=== PATIENT | male | born 1975 | race African-American/Black ===

== ENCOUNTER 2022-03-08 10:36 | Emergency (ER) | payer BC, SELFPAY ==
--- NOTE | ~2022-03-08 | XR_ITS ---
EXAMINATION: XR hand LT min 3V DATE: 03/08/2022 11:01 INDICATION: Left hand injury and swelling. TECHNIQUE: 3 views of left hand were obtained. COMPARISON: None. FINDINGS: Bone alignment is normal. No acute fracture. There are old healed fractures of second-fourt h metacarpals. There is chronic deformity of base of first proximal phalanx that is likely an old hea led fracture. Joint spaces are normal. IMPRESSION: 1. No acute fracture. Reviewed, dictated and finalized at location B. IMPRESSION: 1. No acute fracture.
[2022-03-08 10:44] VITALS: BP 156/93; PULSE 67; RESP 16; TEMP 36.9; O2SAT 100
--- NOTE | 2022-03-08 11:10 | ED.UPPEXIN ---
HPI - Extremity Injury (Upper) General Chief Complaint: Extremity Injury, Upper Stated Complaint: Left hand Swelling Time Seen by Provider: 03/08/22 11:02 Source: patient Mode of arrival: ambulatory Limitations: no limitations History of Present Illness HPI narrative: This is a 47-year-old male that presents to the emergency department for left hand pain and swelling noted since yesterday. No recent injury or trauma. Reports pain and swelling especially about the left third MCP joint. Reports history of similar events in the past, but has not had any certain diagnosis. Denies fever or erythema. Related Data Allergies Allergy/AdvReac Type Severity Reaction Status Date / Time No Known Allergies Allergy Verified 03/08/22 11:36 Review of Systems Review of Systems: CONSTITUTIONAL: Denies fever SKIN: Denies rash MUSCULOSKELETAL: Reports joint pain, and myalgia. NEUROLOGIC: Denies numbness All systems reviewed & are unremarkable except as noted in HPI and below PMFSH Past Medical History Medical History (Updated 03/08/22 @ 12:24 by Sofia Pryor PA-C) No active medical problems Social History Social History (Updated 03/08/22 @ 11:12 by Sofia Pryor PA-C) Substance use: never Exam Narrative: GENERAL: Well-appearing, well-nourished, and in no acute distress. HEAD: Normocephalic, atraumatic. EYES: EOMI. EXTREMITIES: Normal range of motion. Mild edema about the left third MCP joint, tender to palpation. No erythema or warmth. Normal radial pulse. Normal sensation SKIN: Warm, dry, no rash. NEURO: No focal deficits. Alert and oriented x3. PSYCH: Normal mood and affect Course Vital Signs Vital signs: Vital Signs Temperature 98.4 F 03/08/22 10:44 Pulse Rate 67 03/08/22 10:44 Respiratory Rate 16 03/08/22 10:44 Blood Pressure 156/93 H 03/08/22 10:44 Pulse Oximetry 100 03/08/22 10:44 Oxygen Delivery Room Air 03/08/22 10:44 Temperature 98.4 F 03/08/22 10:44 Pulse Rate 67 03/08/22 10:44 Respiratory Rate 16 03/08/22 10:44 Blood Pressure 156/93 H 03/08/22 10:44 Pulse Oximetry 100 03/08/22 10:44 Oxygen Delivery Room Air 03/08/22 10:44 MDM - Extremity Injury (Upper) MDM Narrative Medical decision making narrative: Patient presents to the emergency department for left hand pain and swelling. No known injury or trauma. Patient is afebrile and nontoxic-appearing. There is no erythema the hand. Patient has good range of motion. CBC is without leukocytosis. Inflammatory markers are not concerningly elevated. Kidney function is normal. Left hand x-ray without acute findings. Patient symptoms and exam are consistent with likely a gout flare. Patient will be started on anti-inflammatories and colchicine. He is stable and felt appropriate for further outpatient evaluation. He is to follow-up with primary care doctor. He was given warnings to return to the ER Lab Data Attestation: I reviewed the patient's lab results. Result diagrams: 03/08/22 11:32 03/08/22 11:32 Labs: Lab Results 03/08/22 03/08/22 Range/Units 11:32 11:32 WBC 9.2 (4.5-10.0) K/mm3 RBC 4.45 L (4.6-6.20) M/mm3 Hgb 13.2 L (14.0-18.0) g/dL Hct 43.1 (42.0-52.0) % MCV 96.9 (80-100) fl MCH 29.7 (26-34) pg MCHC 30.6 L (32-36) g/dl RDW 12.7 (11.5-14.5) % Plt Count 270 (150-375) k/mm3 MPV 9.8 (7.4-10.4) fl Immature Gran % (Auto) 0.2 (0-0.5) % Neut % (Auto) 73.7 H (45.5-73.1) % Lymph % (Auto) 16.8 L (18.3-44.2) % [place] % (Auto) 7.7 (2.6-8.5) % Eos % (Auto) 1.3 (0-4.4) % Baso % (Auto) 0.3 (0.2-1.2) % Lymph # (Auto) 1.55 (0.9-3.2) K/mm3 [place] # (Auto) 0.7 H (0.1-0.6) K/mm3 Eos # (Auto) 0.1 (0-0.3) K/mm3 Baso # (Auto) 0.0 (0.0-0.1) K/mm3 Abs Immat Gran (auto) 0.02 (0.00-0.031) K/mm3 Absolute Neuts (auto) 6.8 H (1.3-6.7) K/mm3 Absolute Nucleated RBC 0.0 (0.0-0.012) K/mm3 Nucleated R
[2022-03-08 11:40] LABS: Basophils Percent Auto 0.3 % (0.2-1.2); Eosinophils Absolute Auto 0.1 K/mm3 (0-0.3); Eosinophils Percent Auto 1.3 % (0-4.4); Hematocrit 43.1 % (42.0-52.0); Hemoglobin 13.2 g/dL (14.0-18.0); Immature Granulocyte Absolute 0.02 K/mm3 (0.00-0.031); Immature Granulocyte Percent A 0.2 % (0-0.5); Lymphocytes Absolute Auto 1.55 K/mm3 (0.9-3.2); Lymphocytes Percent Auto 16.8 % (18.3-44.2); Mean Corpuscular HGB Conc 30.6 g/dl (32-36); Mean Corpuscular Hemoglobin 29.7 pg (26-34); Mean Corpuscular Volume 96.9 fl (80-100); Mean Platelet Volume 9.8 fl (7.4-10.4); Monocytes Absolute Auto 0.7 K/mm3 (0.1-0.6); Monocytes Percent Auto 7.7 % (2.6-8.5); Neutrophils Absolute Auto 6.8 K/mm3 (1.3-6.7); Neutrophils Percent Auto 73.7 % (45.5-73.1); Platelet Count Result 270 k/mm3 (150-375); Red Blood Count 4.45 M/mm3 (4.6-6.20); Red Cell Distribution Width 12.7 % (11.5-14.5); White Blood Count 9.2 K/mm3 (4.5-10.0)
[2022-03-08 11:53] LABS: Anion Gap 7 mmol/L (8-16); Blood Urea Nitrogen 10 mg/dL (9-20); Calcium 8.4 mg/dL (8.4-10.2); Carbon Dioxide 26 mmol/L (22-30); Chloride 106 mmol/L (98-107); Estimated CRCL calculation 152 ml/min; Estimated Glomerular Filt Rate > 60; Glucose 94 mg/dL (65-110); Potassium 4.2 mmol/L (3.4-5.0); Sodium 139 mmol/L (137-145); Uric Acid 8.2 mg/dL (3.5-8.5)
[2022-03-08 12:21] LABS: Erythrocyte Sedimentation Rate 17 mm/hr (0-20)
[2022-03-08] MEDS: COLCHICINE 0.6 MG TABLET 1.2 MG PO (12:33)
[2022-03-08] MEDS: INDOMETHACIN 25 MG CAPSULE PO (12:33)
[2022-03-08 12:38] VITALS: BP 161/109; PULSE 60; RESP 19; O2SAT 98
== END 2022-03-08 12:39 | disposition home or self-care (01) ==
PROVIDERS: Physician Assistant; Emergency Provider Emergency Medicine
DX: M25.442 Effusion, left hand (principal)
CPT/HCPCS: 36415; 73130; 80048; 84550; 85025; 85652; 86140; 99283; A9270